=== PATIENT | female | born 1980 | race Caucasian/White ===

== ENCOUNTER 2019-01-26 11:15 | Outpatient (CLI) | payer BC, SELFPAY ==
[2019-01-26 11:58] VITALS: BMI 39.8
--- NOTE | 2019-01-26 16:25 | OB.TRI.HP_ITS ---
History of Present Illness Date of Service: 01/26/19 Was patient seen by the physician?: Yes Reason For Visit: DECREASED MOVEMENT Date of Service: 01/26/19 Final MANISHA: 04/23/19 Gestational age: 27 Weeks and 4 Days History of Present Illness: 38 yo AB2 female. 27 4/7 wk with dec FM presents for evaluation. Allergies amoxicillin Allergy (Unverified 01/26/19 12:01) Unknown oxycodone Allergy (Unverified 01/26/19 12:01) Other NST - FHR Rate Baby A Baseline: 130-140s accels. Variability:: Moderate Accelerations:: 10 x 10 Decelerations:: None NST Reactive:: Yes, Appropriate for gestational age FHR Category:: Category I Uterine Activity:: no UCs noted Impression/Plan 27 4/7 wk decreased movement. Reassuring EFM for EGA Home Keep next ofc appt with primary OB in [place].
== END 2019-01-26 12:30 | disposition home or self-care (01) ==
LOC: WPOUT 11:36 → WP 11:37
PROVIDERS: Referring Provider Obstetrics & Gynecology; Visit Provider Obstetrics & Gynecology
DX: O36.8120 Decreased fetal movements, second trimester, not applicable or unspecified (principal); Z3A.27 27 weeks gestation of pregnancy
CPT/HCPCS: 59050; 99218; G0378

== ENCOUNTER 2020-12-29 05:05 | Inpatient (IN) | payer BC, SELFPAY ==
--- NOTE | 2020-12-24 08:43 | PCM.HP.BLA ---
History and Physical Date of Admission: 12/29/20 HPI: The patient is a 39 year old female presenting for pre-operative visit. She is scheduled for , for previous c/s, 39 weeks on 12/29/2020. Procedure discussed along with risks, benefits and complications. Other alternatives discussed for management. Consent form signed? Yes. ? ? PAST MEDICAL HISTORY PAST MEDICAL HISTORY Diagnosis Date ? Abnormal Pap smear of cervix ? ? Chronic headache ? ? Diet controlled gestational diabetes mellitus (GDM) in third trimester 11/04/2020 ? Ovarian cyst ? ? recurrent ovarian cysts ? PMH - PAST MEDICAL HISTORY OF ? ? none ? depression ? ? ? PAST SURGICAL HISTORY PAST SURGICAL HISTORY Procedure Laterality Date ? CERVIX UTERI CONIZAT CLD KNIF/LASE ? 2003 ? ? ? CURRENT MEDICATIONS Current Outpatient Medications Medication Sig Dispense Refill ? blood sugar diagnostic test strip 1 Strip four times daily. Use as instructed 120 Strip 9 ? Lancets lancets 1 Each four times daily. Use as instructed 120 Each 9 ? Urine Glucose-Ketones Test (KETO-DIASTIX) strp 1 Strip four times daily. 120 Strip 9 ? acetaminophen 325 mg-caffeine 40 mg-butalbital 50 mg (FIORICET) per tablet Take 1 tablet by mouth every 6 hours as needed. 10 tablet 1 ? [id number] fum-folic 27 mg iron- 800 mcg tab ? No current facility-administered medications for this visit. ? ? ALLERGIES: Amoxacillin [Amoxicillin] and Percocet [Oxycodone-Acetaminophen] ? PERSONAL HISTORY: SOCIAL HISTORY Social History ? Tobacco Use ? Smoking status: Former Smoker ? ? Packs/day: 0.50 ? ? Years: 3.00 ? ? Pack years: 1.50 ? ? Types: Cigarettes ? ? Quit date: 2003 ? ? Years since quittin.6 ? Smokeless tobacco: Never Used Vaping Use ? Vaping Use: Never used Substance Use Topics ? Alcohol use: Not Currently ? ? Comment: rare ? Drug use: No ? FAMILY HISTORY: FAMILY HISTORY FAMILY HISTORY Problem Relation Age of Onset ? Breast Cancer Mother ? ? diagnosed at 55 ? Dementia Maternal Grandmother ? ? None Other ? ? No ovarian CA ? Breast Cancer Paternal Grandmother ? ? Bone Cancer and Breast Cancer ? No Known Problems Father ? ? No Known Problems Brother ? ? No Known Problems Maternal Grandfather ? ? Cancer Paternal Grandfather ? ? Lung ? Colon Cancer No Family History ? ? Heart disease No Family History ? ? Diabetes No Family History ? ? ? REVIEW OF SYMPTOMS: GENERAL: denies fevers or chills ENDOCRINOLOGY: has not been on steroids Cardiology : denies palpitations or chest pain Respiratory: denies SOB or cough other than dyspnea w/ exertion due to Hematology: denies history of prolonged bleeding or easy bruising or VTE Allergy: Denies history of personal or family history of allergy to anesthesia ? PHYSICAL EXAMINATION: ? VITALS: Last menstrual period 04/05/2020, unknown if currently . ? GENERAL: The patient is well nourished, well hydrated in no acute distress. , The patient is oriented to time, place, and person. NECK: Supple. No lynphadenopathy, normal thyroid, no thyromegaly. LUNGS: Clear to auscultation bilaterally. no wheezes, rhonchi or rales HEART: Regular rate and rhythm, Normal heart sounds and No murmurs or gallops Abdomen: Soft, nontender, gravid, pannus is moderate ? ? IMPRESSION: 39-year-old 4 para 1-0-2-1 with EDC of 01/03/2021 for repeat section ? PLAN: The risks/benefits/alternatives and personal involved for the planned delivery were reviewed with the patient. Her questions were answered to her satisfaction and she desires to proceed. Consent was signed. I reviewed with her postop instructions and expectations. ? ? I have reviewed and updated past medical and surgical history, medications and allergies Assessment & Plan Assessment/Plan (1) 39 weeks gestation of : (2) Previous delivery affecting , antepartum: (3) Maternal obesity syndrome in third trimester: (4) BMI 37.0-37.9, adult: (5) Gestational diabetes mellitus in , diet controlled: (6) Advanced maternal age during in third trimester: (7) Supervision of other high risk pregnancies, third trimester:
[2020-12-29] VITALS (22 sets, daily range): BP systolic 85–120; BP diastolic 42–64; PULSE 64–95; RESP 10–20; TEMP 36.1–36.8; O2SAT 89–100; BMI 39.2
[2020-12-29] MEDS: Lactated Ringers 1,000 ML 999 ML IV ×2 (05:30→09:01)
[2020-12-29 05:51] LABS: Bedside Glucose 91 mg/dL (70-110)
[2020-12-29] MEDS: Acetaminophen 500 MG Tablet 1000 MG PO ×3 (05:53→18:08)
[2020-12-29 06:02] LABS: Absolute Lymphocyte Count 2.66 X10^3/uL (0.83-4.51); Absolute Neutrophil Count 7.3 X10^3/uL (2.0-7.7); Basophil# 0.04 X10^3/uL; Basophil% 0.4 % (0-1); Eosinophil# 0.08 X10^3/uL; Eosinophils% 0.7 % (0-5); Hematocrit 32.4 % (37-47); Hemoglobin 10.3 g/dL (12.0-15.0); Lymphocyte # 2.66 X10^3/ul (0.83-4.51); Lymphocyte % 24.4 % (19-41); Mean Corp Hgb Conc 31.8 g/dL (32-36); Mean Corpuscular Hgb 26.3 pg (27.0-32.0); Mean Corpuscular Volume 82.9 fL (81-99); Mean Platelet Vol. 11.6 fl (6.2-12.0); Monocyte# 0.76 X10^3/uL; NRBC Flagged by Analyzer 0 % (0-5); Neutrophil # 7.26 X10^3/uL (2.7-7.7); Neutrophil % 66.8 % (47-70); Platelet Count 265 K/mm3 (150-450); RBC Distribution Width CV 14.8 % (11.6-14.6); RBC Distribution Width SD 44.3 fl (35.1-43.9); Red Blood Count 3.91 M/mm3 (4.2-5.4); White Blood Count 10.9 K/mm3 (4.4-11.0)
[2020-12-29] MEDS: Lactated Ringers 1,000 ML 150 ML IV (06:32)
[2020-12-29] MEDS: Sodium Citrate/Citric Acid 30 ML UDC PO (07:05)
[2020-12-29] MEDS: Cefazolin 2 GM in 0.9% Normal Saline 100 ML IV (07:24)
[2020-12-29] MEDS: Oxytocin 30 units/NS 500 ml 30 UNITS/500 ML IV.SOLN 167 UNITS IV (08:35)
[2020-12-29] MEDS: Lactated Ringers 250 ML 999 ML IV (08:42)
[2020-12-29] MEDS: Methylergonovine 0.2 MG/ML Ampul IM ×2 (08:49→10:31)
[2020-12-29 09:22] LABS: Hematocrit 31.7 % (37-47); Hemoglobin 10.1 g/dL (12.0-15.0); Mean Corp Hgb Conc 31.9 g/dL (32-36); Mean Corpuscular Hgb 26.6 pg (27.0-32.0); Mean Corpuscular Volume 83.6 fL (81-99); Platelet Count 213 K/mm3 (150-450); RBC Distribution Width CV 14.7 % (11.6-14.6); RBC Distribution Width SD 45.2 fl (35.1-43.9); Red Blood Count 3.79 M/mm3 (4.2-5.4); White Blood Count 13.3 K/mm3 (4.4-11.0)
[2020-12-29 10:09] LABS: Prothrombin Time (Protime)PT. 12.9 SECONDS (11.7-14.9)
[2020-12-29 10:10] LABS: Partial Thromboplast Time 24.4 Seconds (24.1-36.2)
--- NOTE | 2020-12-29 10:18 | EX.PCM.OBRPT ---
Maternal Data Information Final MANISHA: 01/03/21 Gestational age: 39 2/7 Details Operative Information Date of Procedure: 12/29/20 Pre-Operative Diagnosis: 39 week , previous c/s Post-Operative Diagnosis: same Indications for : Repeat Elective Classification: Scheduled Procedure Type: low transverse exhaust equipment operator #1: Salvador Jerome Type of Anesthesia: Spinal Anesthesiologist: Jesus Barrios Special Medications: duramorph Antibiotic Given: Ancef 2 grams IV x1 Estimated Blood Loss: 900 Fluids Replaced: 1100 Procedure Start Time: 07:41 Procedure Stop Time: 08:19 Time of Delivery: 07:45 Findings Description of Procedure: The patient was taken to the operating room. She was prepped and draped in the dorsal supine position with a leftward tilt. A Pfannenstiel skin incision was made approximately 2 cm above the symphysis pubis and carried through to underlying layer fascia with the scalpel. The fascia was incised incised in the midline and extended laterally with the Kevin scissors. The fascia was dissected off the rectus muscles with blunt and sharp dissection. The rectus muscles were in the midline and the peritoneum was entered bluntly. The peritoneal incision was stretched and the bladder blade was placed. The uterine incision was made in a low transverse fashion with the scalpel and extended superiorly and inferiorly with blunt dissection. The amniotic membranes were ruptured bluntly and clear amniotic fluid returned. The 's head was brought to the incision in the flexed position and delivered without difficulty. The infant presented in a compound fashion. The feet were down by the head. The head was unengaged. I had trouble engaging the head in the incision so both feet were grasped and brought out through the incision. The was delivered to the buttocks and then the trunk was delivered. The arms were swept out over the head individually. A towel was placed around the trunk and the head was delivered in a flexed position without difficulty with fundal pressure in the standard fashion. The mouth and nares were bulb suctioned. The cord was clamped and cut as the infant was stimulated. Cord clamping was delayed 30 seconds. The infant was handed off to the waiting nursing staff. The placenta was delivered with fundal massage and gentle traction in the standard fashion. The uterus was exteriorized and cleared of all clots and debris. The cervix was dilated with a ring forcep. The uterine incision was closed with #1 Vicryl in a running locked fashion. A second layer of the same suture was used in an imbricating fashion. The incision was examined and was found to be hemostatic. The uterus was placed back into the peritoneal cavity and hemostasis was again confirmed. The rectus muscles were examined and any bleeding was Bovie cauterized. The parietal peritoneum and rectus muscles were closed en bloc with an 0 Vicryl running suture. The surgical teams outer gloves were then changed. The rectus fascia was examined and any bleeding was Bovie cauterized and the rectus fascia was closed with 1 Vicryl suture in a running standard fashion. The subcutaneous tissue was examining and any bleeding was Bovie cauterized. The subcutaneous tissue was reapproximated with 3-0 Vicryl suture. The skin was closed in a subcuticular fashion by the JUKE BOX SERVICER with me present in the labor and delivery suite. I performed the remainder of the procedure with assistance. All sponge, lap, and needle counts were correct. The patient was taken to her room for recovery in a stable condition. Presentation: Positive for Vertex (compound presentation, head unengaged and feet by the head, one foot under the vtx) Amniotic Membrane Rupture Type: Artificial Amniotic Fluid Description: Clear Placental Delivery Description: Expressed Placenta Disposition: [facility] Specimen(s) Sent to Pathology: none Cord Vessel Description: 3 Vessels Cord Entanglement: None A Gender: Male (Regan) (1 minute): 7 (5 minute): 9 Delayed Cord Clamping: No Complications Complications: none
[2020-12-29 10:25] LABS: Bedside Glucose 97 mg/dL (70-110)
[2020-12-29] MEDS: Ketorolac 30 MG/ML Syringe IV ×3 (10:25→23:20)
[2020-12-29 10:28] LABS: Fibrinogen 403 mg/dl (203-444)
[2020-12-29] MEDS: proCHLORPERazine 10 MG/2 ML Vial IV (10:31)
--- NOTE | 2020-12-29 11:47 | NURSING ---
1045- late entry weighed 2 padds from recovery and are total of 215cc
[2020-12-29] MEDS: Ondansetron 4 MG/2 ML Vial IV ×2 (12:17→16:53)
[2020-12-29] MEDS: Lactated Ringers 1,000 ML 100 ML IV ×2 (12:17→21:30)
--- NOTE | 2020-12-29 13:10 | NURSING ---
1307-called benton donis crna made aware of pt noting to have decreased respiratory rate down to 8,10, to 12 at times when she falls asleep. pulse ox 98-100% when she does this. pt received compazine around 1030 and started to notice the decreased in resp route following that. to keep on continuous pulse ox and monitor pt until the compazine wears off and enc pt to take deep breaths at times. to notify anesthesia of any further needs.
--- NOTE | 2020-12-29 13:15 | NURSING ---
0900-pulse ox falling off toe and adjusted.
[2020-12-29 13:25] LABS: Hematocrit 34.9 % (37-47); Hemoglobin 11.1 g/dL (12.0-15.0); Mean Corp Hgb Conc 31.8 g/dL (32-36); Mean Corpuscular Hgb 26.3 pg (27.0-32.0); Mean Corpuscular Volume 82.7 fL (81-99); Mean Platelet Vol. 11.4 fl (6.2-12.0); Platelet Count 260 K/mm3 (150-450); RBC Distribution Width CV 14.6 % (11.6-14.6); RBC Distribution Width SD 43.5 fl (35.1-43.9); Red Blood Count 4.22 M/mm3 (4.2-5.4)
[2020-12-29] MEDS: Enoxaparin 40 MG/0.4 ML Syringe SC (19:51)
[2020-12-30 00:24] VITALS: BP 98/47; PULSE 94; RESP 18; O2SAT 100
[2020-12-30] MEDS: Acetaminophen 500 MG Tablet 1000 MG PO ×4 (00:27→18:06)
[2020-12-30 01:43] VITALS: PULSE 90; RESP 16; O2SAT 98
[2020-12-30 03:43] VITALS: BP 96/46; PULSE 85; RESP 18; O2SAT 99
[2020-12-30 05:46] VITALS: PULSE 75; RESP 18; O2SAT 97
[2020-12-30] MEDS: 0.9% Saline Lock 10 ML Syringe IV (05:48)
[2020-12-30] MEDS: Ketorolac 30 MG/ML Syringe IV (05:48)
[2020-12-30 06:06] LABS: Bedside Glucose 93 mg/dL (70-110)
[2020-12-30 06:21] LABS: Hematocrit 28.6 % (37-47); Hemoglobin 9.1 g/dL (12.0-15.0); Mean Corp Hgb Conc 31.8 g/dL (32-36); Mean Corpuscular Hgb 26.5 pg (27.0-32.0); Mean Corpuscular Volume 83.4 fL (81-99); Mean Platelet Vol. 11.3 fl (6.2-12.0); Platelet Count 237 K/mm3 (150-450); RBC Distribution Width CV 14.7 % (11.6-14.6); RBC Distribution Width SD 44.2 fl (35.1-43.9); Red Blood Count 3.43 M/mm3 (4.2-5.4); White Blood Count 13.7 K/mm3 (4.4-11.0)
--- NOTE | 2020-12-30 07:33 | PCM.PN.OB ---
Subjective Subjective Patient seen at bedside. Resting. Denies any CP, SOB, or dizziness. Ambulated and voiding without difficulty. Bottle feeding infant. Pain is controlled at this time. Objective Data Objective Data Fasting BS- 93 Vital Signs: Vital Signs Temp Pulse Resp BP Pulse Ox 97.4 F L 75 18 96/46 L 97 12/29/20 21:10 12/30/20 05:46 12/30/20 05:46 12/30/20 03:43 12/30/20 05:46 Oxygen Delivery Method Room Air Weight: 214 lb 4 oz Body Mass Index (BMI) 39.2 Intake & Output: Intake and Output for Last 24 Hours 12/28/20 12/29/20 12/30/20 23:59 23:59 23:59 Intake Total 4139.17 / 4139.17 275 / 275 Output Total 1100 / 1100 400 / 400 Balance 3039.17 / 3039.17 -125 / -125 Lab / Micro Data Result Diagrams: 12/30/20 06:00 Labs: Laboratory Results - last 24 hr 12/29/20 09:12: WBC 13.3 H, RBC 3.79 L, Hgb 10.1 L, Hct 31.7 L, MCV 83.6, MCH 26.6 L, MCHC 31.9 L, RDW Std Deviation 45.2 H, RDW Coeff of Vanessa 14.7 H, Plt Count 213, MPV 11.0 12/29/20 09:12: PT Cancelled, INR Cancelled, APTT Cancelled, Fibrinogen Cancelled 12/29/20 09:50: PT 12.9, INR 1.0, APTT 24.4, Fibrinogen 403 12/29/20 09:58: POC Glucose 97 12/29/20 12:40: WBC 19.0 H, RBC 4.22, Hgb 11.1 L, Hct 34.9 L, MCV 82.7, MCH 26.3 L, MCHC 31.8 L, RDW Std Deviation 43.5, RDW Coeff of Vanessa 14.6, Plt Count 260, MPV 11.4 12/30/20 05:51: POC Glucose 93 12/30/20 06:00: WBC 13.7 H, RBC 3.43 L, Hgb 9.1 L, Hct 28.6 L, MCV 83.4, MCH 26.5 L, MCHC 31.8 L, RDW Std Deviation 44.2 H, RDW Coeff of Vanessa 14.7 H, Plt Count 237, MPV 11.3 Micro: Microbiology 12/29/20 06:35 Mucosa - Nose SARS-CoV-2 Antigen (Rapid) - Final ROS Eyes Eyes: Denies blurry vision, change in vision or spots in vision ENT HEENT: Denies dizziness or headache(s) Cardiovascular Cardiovascular: Denies abdominal pain, chest pain or dyspnea Respiratory/Chest Respiratory/Chest: Denies cough, dyspnea, shortness of breath at rest or shortness of breath with exertion Gastrointestinal Gastrointestinal: Denies abdominal pain, diarrhea or vomiting Genitourinary Genitourinary: Denies change in urinary stream, difficulty urinating or dysuria Musculoskeletal Musculoskeletal: Reports none Integumentary Integumentary: Denies rash Neurologic Neurologic: Denies dizziness, headache(s), memory loss or weakness Physical Exam Narrative Dressing is dry and intact Const alert and no apparent distress General Appearance: cooperative and comfortable Exam Limitations: no limitations HEENT normocephalic Eyes General Eye: normal appearance of both eyes Neck full ROM General: normal visual inspection Chest Chest: symmetrical chest wall rise Resp normal respiratory effort and normal air movement Effort and Inspection: symmetric chest movement Auscultation: clear to auscultation bilaterally Cardio regular rate and regular rhythm GI normal to inspection, nondistended, normoactive bowel sounds Back/Spine normal ROM Extremity full ROM and no calf tenderness General Extremity: normal exam except as noted Skin no rashes or lesions noted Neuro CN's II-XII intact bilaterally Psych mental status grossly normal Assessment & Plan (1) S/P repeat low transverse : (2) Gestational diabetes mellitus in , diet controlled: QUALIFIERS: Trimester: unspecified trimester Qualified Code(s): O24.410 - Gestational diabetes mellitus in , diet controlled (3) Maternal obesity syndrome in third trimester: PLAN: POD #1 Repeat C/S Pain control Routine care Ambulate today in room Anticipate discharge home tomorrow
[2020-12-30] MEDS: Senna/Docusate Sodium 1 Tablet PO (10:00)
[2020-12-30] MEDS: Naproxen 500 MG Tablet PO ×2 (10:01→18:06)
[2020-12-30 13:50] VITALS: BP 98/56; PULSE 71; RESP 16; TEMP 36.9
--- NOTE | 2020-12-30 16:44 | CASEMGMT ---
Social Work Labor and Delivery Unit Consult received for maternal history of depression. Chart has been reviewed. Plan to meet with [facility] on 12/31/2020 for assessment, consult, and provision of resources. -BERLIN Ulloa, ELDER ASSISTANT
[2020-12-30 20:07] VITALS: BP 102/54; PULSE 81; RESP 16; TEMP 36.6
[2020-12-30] MEDS: Enoxaparin 40 MG/0.4 ML Syringe SC (20:09)
[2020-12-31] MEDS: Acetaminophen 500 MG Tablet 1000 MG PO ×2 (00:04→05:54)
[2020-12-31] MEDS: Naproxen 500 MG Tablet PO (02:07)
[2020-12-31 02:08] VITALS: BP 104/58; PULSE 67; RESP 16; TEMP 36.4
[2020-12-31] MEDS: Ketorolac 10 MG Tablet PO (07:59)
--- NOTE | 2020-12-31 08:03 | PCM.PN.OB ---
Subjective Subjective patient seen at bedside, doing well. Patient reports good pain control. lochia mild. Objective Data Objective Data Vital Signs: Vital Signs Temp Pulse Resp BP Pulse Ox 97.5 F L 67 16 104/58 L 97 12/31/20 02:08 12/31/20 02:08 12/31/20 02:08 12/31/20 02:08 12/30/20 05:46 Oxygen Delivery Method Room Air Weight: 97.182 kg Body Mass Index (BMI) 39.2 Intake & Output: Intake and Output for Last 24 Hours 12/29/20 12/30/20 12/31/20 23:59 23:59 23:59 Intake Total 4139.17 / 4139.17 275 / 275 Output Total 1100 / 1100 600 / 600 Balance 3039.17 / 3039.17 -325 / -325 Lab / Micro Data Result Diagrams: 12/30/20 06:00 Micro: Microbiology 12/29/20 06:35 Mucosa - Nose SARS-CoV-2 Antigen (Rapid) - Final Physical Exam Narrative incision site dry and intact. Const alert and oriented x3 General Appearance: cooperative HEENT normocephalic Neck General: normal visual inspection GI soft to palpation and non-distended GI Narrative: Fundus firm Extremity normal to inspection and no calf tenderness Skin no rashes or lesions noted Neuro oriented x3 and CN's II-XII intact bilaterally Psych mental status grossly normal Assessment & Plan (1) S/P repeat low transverse : PLAN: POD#2 , Doing well Routine care pain mgmt monitor VS ambulation dc home
--- NOTE | 2020-12-31 08:05 | PCM.DC ---
Discharge Instructions Diet Discharge Diet: No restrictions Activity May resume sexual activity in: 6-8 weeks Lifting Restrictions: 25 Dressing / Incision Call your doctor if your incision/area has: Continuous Slow Oozing, Sudden Increased Bleeding, Increased Pain/ Swelling, Increased Redness, Foul Smelling Discharge and Swelling at the incision site Call your doctor if you observe: Fever of 101 or Higher, Inability to urinate, Using more than 1 pad per hour and Uncontrolled pain Additional Dressing/Incision Instructions:: remove dressing at 7 days post op- if it becomes saturated prior to that time you may remove it. Let soap and water run over incision sites and dab dry. keep incision clean and dry. Follow Up Care Please Follow Up With: Mag Mcclellan MD When: 1-2 weeks post of incision check and again at 6 weeks post . [phone] Test Results: Test results from this visit will be discussed in further detail at your follow-up appointment, if applicable. Discharge Plan Admission Admit Date/Time: 12/29/20 05:05 Attending Provider: Corin Terrazas Primary Care Provider: Care Physician,No Primary Discharge Orders/Prescriptions Prescriptions: New acetaminophen 500 mg Tablet 1,000 mg PO Q6H Qty: 30 RF: 0 ketorolac 10 mg Tablet 10 mg PO Q6H PRN PRN (Reason: Pain Score 1-10) Qty: 15 RF: 0 Continued vit,[id number] 1 TABLET tablet 1 tab PO DAILY RF: 0 Referrals / Follow Up: Care Physician,No Primary [Primary Care Provider] - Disposition Disposition (needs filled in before D/C Order can be placed): Home, Self Care
[2020-12-31 08:08] VITALS: BP 100/61; PULSE 78; RESP 16; TEMP 36.2
== END 2020-12-31 11:50 | disposition home or self-care (01) | DRG 788 ==
PROVIDERS: Admitting Provider Obstetrics & Gynecology; Visit Provider Obstetrics & Gynecology
PROC: 10D00Z1 Extraction of Products of Conception, Low, Open Approach (ICD-10-PCS; CPT 59514; principal; 2020-12-29 07:15)
DX: O34.211 Maternal care for low transverse scar from previous cesarean delivery (principal); Z37.0 Single live birth; Z3A.39 39 weeks gestation of pregnancy; Z87.891 Personal history of nicotine dependence; O99.214 Obesity complicating childbirth; E66.9 Obesity, unspecified; O24.420 Gestational diabetes mellitus in childbirth, diet controlled
CPT/HCPCS: 82962; 85025; 85027; 85384; 85610; 85730; 86850; 86900; 86901; 87426; 99218; J7120; A4216; G0378; J2405